=== PATIENT | female | born 1955 | race Caucasian/White ===

== ENCOUNTER 2024-04-17 20:44 | Emergency (ER) | payer OTHER ==
[~2024-04-17] VITALS: Ht 175.3 cm; Wt 77.1 kg
[2024-04-17 20:45] VITALS: BP 143/84; PULSE 77; RESP 20; TEMP 97.5; O2SAT 98
[2024-04-17] MEDS: BACITRACIN OINT 500 UNITS/GM PKT TP ONE (21:39)
[2024-04-17] MEDS ORDERED: BACI-105 TP (21:47)
[2024-04-17 23:12] VITALS: BP 109/70; PULSE 65; RESP 14; O2SAT 95
== END 2024-04-17 23:46 | disposition home or self-care (01) ==
LOC: MED 20:44
DX: S51.811A Laceration without foreign body of right forearm, initial encounter (principal); R03.0 Elevated blood-pressure reading, without diagnosis of hypertension; R51.9 Headache, unspecified; I10 Essential (primary) hypertension; E03.9 Hypothyroidism, unspecified; Z85.828 Personal history of other malignant neoplasm of skin; Z79.899 Other long term (current) drug therapy; X58.XXXA Exposure to other specified factors, initial encounter; Y92.89 Other specified places as the place of occurrence of the external cause; Y93.89 Activity, other specified; Y99.8 Other external cause status
CPT/HCPCS: 70450; 99284